=== PATIENT | female | born 1995 | race African-American/Black ===

== ENCOUNTER 2020-08-24 00:30 | Emergency (ER) | payer OTHER ==
[~2020-08-24] VITALS: Ht 152.4 cm; Wt 50.0 kg
[2020-08-24] MEDS ORDERED: IBUPROFEN 600MG TABLET PO NR (01:27)
[2020-08-24] MEDS ORDERED: AMOX-424 MT (01:31)
[2020-08-24] MEDS ORDERED: IBUP-2029 PO (01:31)
[2020-08-24 04:25] VITALS: BP 108/80
== END 2020-08-24 04:37 | disposition home or self-care (01) ==
LOC: ER 00:30
DX: K04.7 Periapical abscess without sinus (principal); H92.03 Otalgia, bilateral
CPT/HCPCS: 99283

== ENCOUNTER 2021-06-27 22:11 | Emergency (ER) | payer MEDICAID, OTHER ==
[~2021-06-27] VITALS: Ht 160 cm; Wt 50.0 kg
[~2021-06-27 22:11] MED LIST: AMOX-424 MT; IBUP-2029 PO
[2021-06-27 22:14] VITALS: BP 106/74
== END 2021-06-28 01:22 | disposition left against medical advice (07) ==
LOC: ER 22:11
DX: R68.89 Other general symptoms and signs (principal); Z53.21 Procedure and treatment not carried out due to patient leaving prior to being seen by health care provider
CPT/HCPCS: 99283

== ENCOUNTER 2021-07-27 02:53 | Emergency (ER) | payer MEDICAID, OTHER ==
[~2021-07-27] VITALS: Ht 165.1 cm; Wt 55.0 kg
[2021-07-27] MEDS ORDERED: IBUPROFEN 400MG TABLET PO ONE (07:30)
[2021-07-27 08:20] LABS: CHLORIDE 106 mEq/L (98-107)
[2021-07-27 08:26] LABS: ETHANOL BLOOD < 10 mg/dL
[2021-07-27 08:40] LABS: HCG SCREEN NEGATIVE
[2021-07-27 08:42] LABS: BASOPHILS % 0.5 % (0.0-2.0); EOSINOPHILS % 0.6 % (0.0-5.0); HEMATOCRIT. 42.4 % (36.0-48.0); HEMOGLOBIN. 13.7 g/dL (12.0-16.0); LYMPHOCYTES % 27.3 % (20.0-50.0); MEAN CORPUSCULAR HEMOGLOBIN 27.7 pg (28.0-32.0); MEAN CORPUSCULAR VOLUME 85.5 fL (81.0-99.0); MEAN PLATELET VOLUME 8.6 fl (7.4-10.4); MONOCYTES % 12.7 % (2.0-8.0); NEUTROPHILS % 58.9 % (40.0-76.0); PLATELET 200 x1000/uL (130-400); RED BLOOD CELL COUNT 4.95 mill/uL (4.2-5.4); RED CELL DISTRIBUTION WIDTH 13.5 % (11.6-14.6)
[2021-07-27 16:25] VITALS: BP 116/81
[2021-07-27] MEDS ORDERED: TRAZODONE HCL 50MG TABLET PO SCH (21:00)
[2021-07-27] MEDS ORDERED: RISPERIDONE 1MG TABLET PO SCH (21:00)
== END 2021-07-27 16:25 | disposition home or self-care (01) ==
LOC: ER 02:53
DX: F20.0 Paranoid schizophrenia (principal); M79.672 Pain in left foot; M79.671 Pain in right foot; F31.9 Bipolar disorder, unspecified; Z20.822 Contact with and (suspected) exposure to COVID-19
CPT/HCPCS: 36415; 80053; 80307; 80320; 80329; 84703; 85025; 87426; 99283; G0480